=== PATIENT | female | born 1995 | race African-American/Black ===

== ENCOUNTER 2022-01-13 13:34 | Emergency (ER) | payer OTHER | END 2022-01-13 15:02 | disposition home or self-care (01) | LOC: ERS 13:34 | DX: H61.22 Impacted cerumen, left ear (principal); E10.9 Type 1 diabetes mellitus without complications; Z79.4 Long term (current) use of insulin | CPT/HCPCS: 69209 ==

== ENCOUNTER 2022-09-22 11:41 | Emergency (ER) | payer OTHER | END 2022-09-22 13:38 | disposition left against medical advice (07) | LOC: ERS 11:41 | DX: Z53.29 Procedure and treatment not carried out because of patient's decision for other reasons (principal) ==

== ENCOUNTER 2022-09-24 18:23 | Emergency (ER) | payer OTHER | END 2022-09-24 18:50 | disposition left against medical advice (07) | LOC: ERS 18:23 | DX: Z53.29 Procedure and treatment not carried out because of patient's decision for other reasons (principal) ==

== ENCOUNTER 2023-04-11 10:31 | Emergency (ER) | payer OTHER ==
[2023-04-11] MEDS ORDERED: Ketorolac Tromethamine 30 MG/ML VIAL ONE (11:29)
== END 2023-04-11 11:37 | disposition home or self-care (01) ==
LOC: ERS 10:31
DX: M25.512 Pain in left shoulder (principal); E10.9 Type 1 diabetes mellitus without complications
CPT/HCPCS: 96372; J1885